=== PATIENT | female | born 1955 | race Caucasian/White ===

== ENCOUNTER 2016-11-07 11:27 | Emergency (ER) | payer OTHER ==
--- NOTE | 2016-11-07 13:39 | UC ---
Hand/Wrist HPI - HPI Summary HPI Summary: Noticed pain on pad of L thumb 2 days ago, has gotten worse with increasing redness, swelling, and tenderness since then. Denies injury or fever. No recent gardening around thorns or prickers. Hx of gout, has never had in the hands before. - History Of Current Complaint Chief Complaint: UCSkin Stated Complaint: THUMB COMPLAINT Time Seen by Provider: 11/07/16 13:15 Hx Obtained From: Patient ?: No Onset/Duration: Gradual Onset, Lasting Days Severity Initially: Mild Severity Currently: Mild Character Of Pain: Dull, Aching, Stiffness Alleviating: Nothing Associated Signs And Symptoms: Positive: Swelling, Redness Related History: Dominant Hand Right - Allergies/Home Medications Allergies/Adverse Reactions: Allergies Allergy/AdvReac Type Severity Reaction Status Date / Time Sulfa Drugs Allergy Severe Rash And Verified 11/07/16 13:28 Itching Home Medications: Home Medications Diltiazem HCl Coated Beads [Cartia Xt] 240 mg PO DAILY 11/07/16 [History Confirmed 11/07/16] Pioglitazone HCl [Actos] 45 mg PO DAILY 11/07/16 [History Confirmed 11/07/16] Pregabalin CAP(*) [Lyrica CAP(*)] 75 mg PO BID 11/07/16 [History Confirmed 11/07] PMH/Surg Hx/FS Hx/Imm Hx - Additional Past Medical History Additional PMH: Hx gout Endocrine History: Diabetes, Thyroid Disease Cardiovascular History: Hypertension - Surgical History Surgical History: Yes Surgery Procedure, Year, and Place: Tonsilectomy. tubal ligation. anterior cervical discectomy w/ fusion. Carpal tunnel (Right) - Family History Known Family History: Positive: Unknown - Social History Alcohol Use: Rare Substance Use Type: None Smoking Status (MU): Former Smoker When Did the Patient Quit Smoking/Using Tobacco: 30 YRS AGO - Immunization History Most Recent Tetanus Shot: 07/2011 Review of Systems Constitutional: Negative Skin: Other - swelling in L thumb Eyes: Negative ENT: Negative Respiratory: Negative Cardiovascular: Negative Gastrointestinal: Negative Genitourinary: Negative Motor: Negative Neurovascular: Negative Musculoskeletal: Negative Neurological: Negative Psychological: Negative All Other Systems Reviewed And Are Negative: Yes Physical Exam Triage Information Reviewed: Yes Appearance: Well-Appearing, No Pain Distress, Obese Vital Signs: Initial Vital Signs Temp 97.8 F 11/07/16 12:59 Pulse 110 11/07/16 12:59 Resp 16 11/07/16 12:59 Pulse Ox 100 11/07/16 12:59 Vital Signs Reviewed: Yes Eye Exam: Normal Eyes: Positive: Conjunctiva Clear ENT Exam: Normal ENT: Positive: Normal ENT inspection, Hearing grossly normal, Pharynx normal, TMs normal Dental Exam: Normal Neck exam: Normal Neck: Positive: Supple, Nontender, No Lymphadenopathy Respiratory Exam: Normal Respiratory: Positive: Chest non-tender, Lungs clear, Normal breath sounds, No respiratory distress, No accessory muscle use Cardiovascular Exam: Normal Cardiovascular: Positive: RRR - high 90s on exam Abdominal Exam: Normal Musculoskeletal: Positive: ROM Limited @ - by swelling, L thumb IP joint Neurological Exam: Normal Neurological: Positive: Alert Psychological Exam: Normal Skin Exam: Other - 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 Since it is not centered on a joint it is probably not gout, but the indocin will help with your pain regardless. I expect the pain and redness to improve within 2-3 days. If not, see your primary care provider early next week for a follow-up exam. If you have increasing redness, streaking up the arm, fever, or any other severe worsening, please go to the emergency department.
== END 2016-11-07 13:30 | disposition home or self-care (01) ==
LOC: UCEAST 11:27
DX: L03.012 Cellulitis of left finger (principal); E11.9 Type 2 diabetes mellitus without complications; I10 Essential (primary) hypertension; E07.9 Disorder of thyroid, unspecified; Z87.891 Personal history of nicotine dependence
CPT/HCPCS: 99212; G0463

== ENCOUNTER 2017-04-11 18:58 | Emergency (ER) | payer OTHER ==
--- NOTE | 2017-04-11 20:20 | ED ---
Skin Complaint - HPI Summary HPI Summary: 62 female presents to ED as instructed by Dr Sanchez office due to complaints of having a warm, swollen back incision that began today. Patient states incision was fine yesterday. Had back surgery on 03/[address] Sanchez. 1 week ago at follow up had some blood removed from site, per patient. Today noticed incision to be slightly more swollen and red. Patient denies significant pain, feeling of illness and fever/chills. Has not taken any medication. No other complaints. PMHx significant for diabetes, polycythemia vera and HTN. - History of Current Complaint Chief Complaint: EDGeneral Time Seen by Provider: 04/11/17 19:42 Stated Complaint: SWOLLEN INCISION SITE. Hx Obtained From: Patient, Family/Language Teacher - Onset/Duration: Started Hours Ago Skin Exposure Onset/Duration: Hours Ago - upon waking this morning 04/11 Timing: Constant Onset Severity: Mild Current Severity: Mild Pain Intensity: 4 Pain Scale Used: 0-10 Numeric Skin Location: Discrete - 4lower mid back L2-L5 level at incision site Character: Swelling, Redness, Raised, Painful Aggravating Symptom(s): Nothing Alleviating Symptom(s): Nothing Associated Signs & Symptoms: Negative - Additional Pertinent History Primary Care Physician: FERCHO - Allergy/Home Medications Allergies/Adverse Reactions: Allergies Allergy/AdvReac Type Severity Reaction Status Date / Time Sulfa Drugs Allergy Severe Rash And Verified 04/11/17 19:04 Itching PMH/Surg Hx/FS Hx/Imm Hx Endocrine/Hematology History: Reports: Hx Bone Marrow Disease - Polycythemia Vera, Hx Diabetes - po meds, Hx Anemia - on iron Denies: Hx Thyroid Disease Cardiovascular History: Reports: Hx Hypertension - ON MEDS Denies: Hx Angina, Hx Coronary Artery Disease, Hx Hypercholesterolemia, Hx Pacemaker/ICD, Hx Valvular Heart Disease Comment Only: Hx Myocardial Infarction - ? in EKG Q waves Respiratory History: Denies: Hx Asthma, Hx Chronic Obstructive Pulmonary Disease (COPD) GI History: Reports: Hx Gastroesophageal Reflux Disease, Other GI Disorders - reports multi nodular goiter Denies: Hx Ulcer History: Denies: Hx Renal Disease Musculoskeletal History: Reports: Hx Arthritis - back and hands Denies: Hx Scoliosis Sensory History: Reports: Hx Contacts or Glasses - glasses Denies: Hx Hearing Aid Opthamlomology History: Reports: Hx Contacts or Glasses - glasses Neurological History: Reports: Hx Nerve Disease - spine, Other Neuro Impairments /Disorders - fx skull at 3 yrs of age Denies: Hx Headaches Psychiatric History: Reports: Hx Depression - on med Denies: Hx Panic Disorder - Cancer History Hx Chemotherapy: No Hx Radiation Therapy: No - Surgical History Surgery Procedure, Year, and Place: Tonsilectomy. tubal ligation. anterior cervical discectomy w/ fusion. Carpal tunnel (Right) Hx Anesthesia Reactions: No - Immunization History Immunizations Up to Date: Yes Infectious Disease History: No Infectious Disease History: Denies: Hx Clostridium Difficile, Hx Hepatitis, Hx Human Immunodeficiency Virus (HIV), Hx of Known/Suspected MRSA, Hx Shingles, Hx Tuberculosis, Hx Known/ Suspected VRE, Hx Known/Suspected VRSA, History Other Infectious Disease, Traveled Outside the [place] in Last 30 Days - Family History Known Family History: Positive: Unknown - Social History Alcohol Use: None Substance Use Type: Reports: None Smoking Status (MU): Former Smoker Type: Cigarettes Amount Used/How Often: smoked for 12-13 years 1ppd Have You Smoked in the Last Year: No Review of Systems Constitutional: Negative Cardiovascular: Negative Respiratory: Negative Gastrointestinal: Negative Positive: Rash - swelling, warmth, redness incision site All Other Systems Reviewed And Are Negative: Yes Physical Exam Triage Information Reviewed: Yes Vital Signs On Initial Exam: Initial Vitals Temp Pulse Resp BP Pulse Ox 97.4 F 109 16 122/62 100 04/11/17 19:01 04/11/17 19:01 04/11/17 19:01 04/11/17 19:01 04/11/17 19:01 tachycardia noted, patient states she is always in the 100s bpm. normal for her. Vital Signs Reviewed: Yes Appearance: Positive: Well-Appearing, No Pain Distress, Well-Nourished Skin: Positive: Warm, Skin Color Reflects Adequate Perfusion, Dry, Erythema @ - very minimal erythema at incision site of L2-L4 back region without signs of cellulitis or abscess. minimally tender to palpation and minimally edematous. no drainage, well approximated. warm to touch. firm area at proximal incision ~ 2cm area, no fluctuance. no dehicense. incision well approximate and appears to be healing nicely.. Negative: Cold, Cyanosis @, Pale Head/Face: Positive: Normal Head/Face Inspection Eyes: Positive: Conjunctiva Clear ENT: Positive: Hearing grossly normal Neck: Positive: Supple, Nontender, No Lymphadenopathy Respiratory/Lung Sounds: Positive: Clear to Auscultation, Breath Sounds Present. Negative: Rales, Rhonchi, Wheezes Cardiovascular: Positive: Normal, RRR, Pulses are Symmetrical in both Upper and Lower Extremities, Tachycardia - chronic. Negative: Murmur, Rub Abdomen Description: Positive: Nontender, Soft Bowel Sounds: Positive: Present Musculoskeletal: Positive: Normal, Strength/ROM Intact. Negative: Limited @, Interruption @, Pain @ Neurological: Positive: Normal, Sensory/Motor Intact, Alert, Oriented to Person Place, Time, CN Intact II-III, Reflexes Intact, NV Bundle Intact Distally, Normal Gait Diagnostics - Vital Signs Vital Signs Temp Pulse Resp BP Pulse Ox 04/11/17 19:01 97.4 F 109 16 122/62 100 - Laboratory Lab Statement: Any lab studies that have been ordered have been reviewed, and results considered in the medical decision making process. - Ultrasound No standard instances Ultrasound Interpretation: Positive (See Comments) - Sonographic images show and echogenically heterogeneous collection deep to the area of interest measuring approximately 4.1 x 4.0 cm in the axial plane and 7.5 cm in length. There is no significant vascularity within or around the collection. IMPRESSION : Mixed echogenicity collection beneath the dermis underlying the ultrasound imaged area of interest. Ultrasound Interpretation Completed By: Radiologist - and myself Course/Dx - Course Course Of Treatment: ultrasound obtained to rule out abscess/fluid collection. did show deep fluid, possibly more blood as previously was drained by surgeonDaniel. patient is a diabetic and has higher risk of infection. due to new symptoms of swelling, mild erythema and warmth will start keflex. no other emergent concerns requiring further work up at this time. no need for drainage as no definitive abscess collection and is very deep beneath dermis, according to u/s report. aware of worsening signs and symptoms. follow up with surgeon. apply warm compresses. keep clean and dry. no fluid/drainage available to culture. No known history of MRSA per patient. - Differential Diagnoses - Skin Complaint Differential Diagnoses: Abscess, Cellulitis, MRSA, Other - dehicense, incision complication, incision infection - Diagnoses Provider Diagnoses: Incisional infection, Post-operative complication Discharge - Discharge Plan Condition: Stable Disposition: HOME Prescriptions: Cephalexin CAP* [Keflex CAP*] 500 mg PO TID #29 cap Patient Education Materials: Acute Wound Care (ED), Wound Healing and Your Diet (ED), Warm Compress or Soak (ED), Acute Wounds (ED) Referrals: Dileep [facility] [Primary Care Provider] - Ghassan Sanchez MD [Medical Doctor] - Additional Instructions: Please follow up with Dr Sanchez at next available appointment. Be sure to keep close eye on glucose and keep in good control. Increase fluid intake. Apply warm compresses to incision area. Take prescribed antibiotic as directed. Keep are clean and dry. Any new or worsening symptoms such as increased warmth, redness, swelling, pain and drainage after 2 days of antibiotics or fever/general feeling of illness return to ED.
[2017-04-11] MEDS ORDERED: Cephalexin CAP* 500 MG PO ONE (21:14)
--- NOTE | 2017-04-11 21:18 | RAD ---
INDICATION: Swollen lower back incision COMPARISON: None TECHNIQUE: Real time ultrasound images of the subcutaneous tissue overlying the low midline back were acquired in santiago scale and Doppler color flow. FINDINGS: Sonographic images show and echogenically heterogeneous collection deep to the area of interest measuring approximately 4.1 x 4.0 cm in the axial plane and 7.5 cm in length. There is no significant vascularity within or around the collection. IMPRESSION: Mixed echogenicity collection beneath the dermis underlying the ultrasound imaged area of interest.
[2017-04-11 22:20] VITALS: BP 122/65
== END 2017-04-11 22:20 | disposition home or self-care (01) ==
LOC: ED 18:58
DX: T81.4XXA Infection following a procedure, initial encounter (principal); R21 Rash and other nonspecific skin eruption; Z87.891 Personal history of nicotine dependence; Z86.79 Personal history of other diseases of the circulatory system; Z98.890 Other specified postprocedural states
CPT/HCPCS: 76705; 99282; A9270-GY